=== PATIENT | female | born 1950 | race African-American/Black ===

== ENCOUNTER 2019-09-27 09:52 | Emergency (ER) | payer MEDICAID, OTHER ==
[~2019-09-27] VITALS: Ht 167.6 cm; Wt 64.0 kg
[2019-09-27] MEDS ORDERED: ONDANSETRON 4MG ODT PO ONE (10:15)
[2019-09-27] MEDS ORDERED: HYDROCODONE/ACETAMINOPHEN 5/325MG TABLET PO ONE (10:15)
[2019-09-27 12:30] VITALS: BP 137/80
== END 2019-09-27 13:52 | disposition home or self-care (01) ==
LOC: ER 10:13
DX: S60.212A Contusion of left wrist, initial encounter (principal); M54.5 Low back pain; M25.552 Pain in left hip; R94.31 Abnormal electrocardiogram [ECG] [EKG]; V43.52XA Car driver injured in collision with other type car in traffic accident, initial encounter; Y93.89 Activity, other specified; Y92.488 Other paved roadways as the place of occurrence of the external cause
CPT/HCPCS: 29125; 71101; 72100; 73090; 73130; 73502; 93005; 99283; Q0162